=== PATIENT | female | born 1980 | race Caucasian/White ===

== ENCOUNTER → 2021-01-24 12:54 | Outpatient (CLI) | payer BC, SELFPAY ==
--- NOTE | ~2021-01-24 | CT_ITS ---
EXAMINATION: CT sinus wo con DATE: 01/24/2021 13:09 INDICATION: Acute recurrent sinusitis. TECHNIQUE: Computed tomography (CT) of the paranasal sinuses was performed without intravenous contra st. The dose-length product was 297.70 mGy-cm. Automated exposure control and iterative reconstructio n technique were employed. COMPARISON: None FINDINGS: There is mild mucosal thickening of the left maxillary sinus. There are bilateral neida bu llosa. Ostiomeatal units are patent. No air-fluid levels. No significant mucoperiosteal reaction. Mil d mucosal thickening of the ethmoid sinuses. Mastoids are pneumatized. IMPRESSION: 1. Mild sinus disease involving the left maxillary and ethmoid sinuses. Reviewed, dictated and finalized at location A.
== END ==
PROVIDERS: PCP Family Medicine; Visit Provider Otolaryngology
DX: J01.41 Acute recurrent pansinusitis (principal); J32.2 Chronic ethmoidal sinusitis; J32.0 Chronic maxillary sinusitis
CPT/HCPCS: 70486

== ENCOUNTER → 2021-07-20 14:26 | Outpatient (CLI) | payer BC, SELFPAY ==
--- NOTE | ~2021-07-20 | XR_ITS ---
XR abdomen obstructive series 07/20/2021 15:02 INDICATION: Sphincter of Oddi dysfunction TECHNIQUE: KUB COMPARISON: None FINDINGS: Bowel gas pattern is normal. Moderate colonic fecal loading. There are cholecystectomy clip s. There is no evidence of free air, mass, organomegaly, ascites or obstruction. No abnormal calculi are seen. The bones appear intact. IMPRESSION: 1: No acute abdominal abnormality identified. Reviewed, dictated and finalized at location A. [employer]
== END ==
PROVIDERS: PCP Family Medicine; Visit Provider Family Medicine
DX: K63.4 Enteroptosis (principal); N80.9 Endometriosis, unspecified; R14.0 Abdominal distension (gaseous)
CPT/HCPCS: 74019